=== PATIENT | male | born 1995 | race Caucasian/White ===

== ENCOUNTER → 2019-01-14 05:21 | Day surgery (SDC) | payer OTHER ==
[~2019-01-14] VITALS: Ht 180.3 cm; Wt 109.1 kg
[2019-01-14 06:41] VITALS: BP 115/70; Ht 180.3 cm; Wt 109.1 kg
--- NOTE | 2019-01-17 14:05 | OP ---
PATIENT NAME: ALEXA MCPHERSON MEDICAL RECORD: [id number] :89 LOCATION:D.OPS ADMISSION DATE: SURGEON: RAÚL BALLESTEROS MD DATE OF OPERATION: 01/14/2019 PREOPERATIVE DIAGNOSIS: Infected pilonidal cyst. POSTOPERATIVE DIAGNOSIS: Infected pilonidal cyst. PROCEDURE: Pilonidal cystectomy with placement of placental graft. Dimensions of the excision, including margins, were 8.4 cms in the cephalad-caudad dimension and 6.0 cms in the lateral dimension. The depth of the wound was 4.5 cms. SURGEON: Raúl Ballesteros MD COOK FISH AND CHIPS: None. BLOOD LOSS: 150 cc. ANESTHESIA: General. COMPLICATIONS: None. DRAINS: Times 1 (quarter-inch [place]). The risks, possible complications, and alternatives to the procedure were explained to the patient. He elects to proceed. The discussion specifically included, but was not limited to, bleeding requiring emergency reoperation, infection, possibility that the pilonidal cyst could recur, possibility of dehiscence. OPERATIVE COURSE: The patient was conveyed to the operating room electively on 01/14/2019. General anesthesia was induced by the anesthesia staff. The patient was placed prone in the jackknife position. Through a central pore in the cleft, I inserted an Angiocath. A combination of hydrogen peroxide and methylene blue was injected down through this Angiocath. It exited to the left of midline and cephalad through an area that was erythematous and was open and had been draining. I think that the pilonidal cyst was a midline structure, but it pointed and drained superiorly and to the left. Through the use of double curvilinear incisions, I excised the pore as well as the tissue to and around the draining area. I excised down to the periosteum of the sacrum. Hemostasis was achieved with the electrocautery. I noted no purulence, so cultures were not obtained. Dimensions were obtained and are listed above. Hemostasis was achieved with electrocautery. Additional blue material was excised in a piecemeal fashion. Again, hemostasis was achieved. I then placed a Stravix cryopreserved placental tissue, which was a 3 x 6 cm. This was placed in the base of the wound. It was sutured to the periosteum of the sacrum with 2-0 Vicryls. I then closed the wound in layers with #1 Vicryls. The subdermis was approximated with #1 Vicryls. The skin was approximated with multiple interrupted horizontal mattress 2-0 Vicryls. I then inserted a quarter-inch [place] down through the sutures. This was sutured to skin with a 2-0 silk. OPERATIVE REPORT [id number] ALEXA MCPHERSON A bulky dressing was applied. The patient was then extubated and conveyed to the post-anesthesia care unit. He can shower. He is to apply either gauze dressing or Maxipad or panty liner or something to absorb fluid. We anticipate he will drain some fluid, perhaps even a purulent fluid, serosanguineous or serous fluid. That is what the drain is for to allow free access to any subcutaneous fluid so that it can drain easily. I would like the black suture to be cut in 1 week and the drain to be removed. The can be done at the senior care. I would like to see the patient on rounds during my GI clinic in 2-3 weeks and I will remove the rest of the sutures. There is no need for the patient to follow up with me in the office unless he develops complication related to this operative procedure. He is being dismissed back to the senior care with [place] for pain as well as Colace as I do not want him straining while defecating and doxycycline. A consultation form did not accompany the patient today, so there was no form to fill out. The condense consultation request from Dr. Lynch did accompany the patient. TRANSINT:[id number] Voice Confirmation ID: [id number] DOCUMENT ID: [id number] CC: Dr. Leon Lynch, RAÚL BALLESTEROS MD at 1405 CC: SWETHA BLISS MD and MAGGI SHELTON [id number] DICTATION DATE: 01/14/19 1056 [employer] HELPER: 01/14/19 1145 [facility] 01/14/19 [place] [id number] [place] [id number]
== END | disposition home or self-care (01) ==
LOC: D.OPS 05:21
PROVIDERS: ATTEND Surgery
DX: L05.91 Pilonidal cyst without abscess (principal)